=== PATIENT | female | born 1985 | race Hispanic/Latino ===

== ENCOUNTER 2022-08-16 08:47 | Emergency (ER) | payer SELFPAY ==
[2022-08-16] MEDS ORDERED: FOLIC ACID 1 MG, MULTIVITAMINS INJ 10 ML, THIAMINE HCL 100 MG in NA CHLORIDE 0.9% 1,000 ML IV ONE (09:00)
[2022-08-16 09:41] LABS: Absolute Lymphocytes (CBC) 0.5 K/uL (0.7-4.9); Hematocrit 43.1 % (36.0-45.0); Lymphocytes % 3.6 % (15.3-44.8); MCV 89.3 fL (80-100); MPV 8.3 fL (7.6-11.3); RBC Red Blood Cell Count 4.83 M/uL (3.86-4.86)
[2022-08-16 09:59] LABS: ALT/SGPT 52 U/L (13-56); AST/SGOT 45 U/L (15-37); Albumin 4.3 g/dL (3.4-5.0); Alkaline Phosphatase 61 U/L (45-117); BUN Blood Urea Nitrogen 9 mg/dL (7-18); Bicarbonate 26 mEq/L (21-32); Bilirubin Total 0.3 mg/dL (0.2-1.0); Glomerular Filtration Rate 107 ml/min (=/>90); Glucose Level 144 mg/dL (74-106); Lipase 25 U/L (13-75); Potassium 3.9 mEq/L (3.5-5.1); Protein, Total 8.5 g/dL (6.4-8.2); Sodium Level 141 mEq/L (136-145); Troponin High Sensitivity < 3.0 pg/mL (<58.9)
[2022-08-16 10:03] LABS: Specific Gravity 1.021 (1.005-1.030); Urine Bacteria None Seen /HPF (<20); Urine Bilirubin NEGATIVE (Negative); Urine Blood 2+ (Negative); Urine Clarity Clear (Clear); Urine Color Light-Yellow (Yellow); Urine Glucose NEGATIVE (Negative); Urine Mucus Slight /HPF (None Seen); Urine Protein 1+ (Negative); Urine RBC <5 /HPF (None Seen); Urine Urobilinogen Normal (Normal)
[2022-08-16 10:18] LABS: Blood Morphology Comment NOT SEEN (NOT SEEN); Platelet Estimate ADEQ; White Blood Cell Scan OK (OK)
[2022-08-16] MEDS ORDERED: FAMOTIDINE 20 MG/2 ML VIAL IV ONE (11:03)
[2022-08-16] MEDS ORDERED: ONDANSETRON 4 MG/2 ML VIAL ONE ×2 (11:03→12:30)
--- NOTE | 2022-08-16 11:07 | RAD REPORT ---
EXAM DESCRIPTION: CT - Abdomen Pelvis Wo Contrast - 08/16/2022 10:34 am CLINICAL HISTORY: ABD PAIN COMPARISON: No comparisons TECHNIQUE: Thin cut axial CT imaging of the abdomen and pelvis was performed without IV contrast. Mu ltiplanar reformats were generated and reviewed. All CT scans are performed using dose optimization technique as appropriate and may include automated exposure control or mA/KV adjustment according to patient size. FINDINGS: No suspicious findings in the lung bases. The liver, spleen, and pancreas show no suspicious findings. Gallbladder and biliary tree are also wi thout suspicious finding. Symmetric renal contour, without suspicious parenchymal findings within limits of noncontrast techniq ue. No evidence of radiopaque calculi or hydroureteronephrosis. No dilated bowel loops or bowel wall thickening. Nonspecific fluid filling throughout segments of non distended small large bowel loops. No free air, free fluid or inflammatory stranding. No hernia, mass or bulky lymphadenopathy. The urinary bladder is without significant finding. No suspicious bony findings. IMPRESSION: Fluid filling within nondistended segments of small and large bowel loops, could relate to diarrheal state or nonspecific mild enterocolitis. No other acute intra-abdominal process.
[2022-08-16] MEDS ORDERED: NA CHLORIDE 0.9% 1,000 ML ONE (12:30)
--- NOTE | 2022-08-16 13:46 | ER ---
Nurse's Notes [facility] Name: Gabriela Mckeon Age: 36 yrs Sex: Female : 1985 Arrival Date: 08/16/2022 Time: 08:47 Bed 19 Private MD: Diagnosis: Nausea with vomiting, unspecified;Diarrhea, unspecified;Alcohol use, unspecified Presentation: 08/16 09:00 Chief complaint: Patient states: "I think I have alcohol poisoning, I can't keep hb anything down and have black watery stools and I can't breathe.". Coronavirus screen: At this time, the client does not indicate any symptoms associated with coronavirus-19. Ebola Screen: No symptoms or risks identified at this time. Initial Sepsis Screen: Does the patient meet any 2 criteria? No. Patient's initial sepsis screen is negative. Does the patient have a suspected source of infection? No. Patient's initial sepsis screen is negative. Risk Assessment: Do you want to hurt yourself or someone else? Patient reports no desire to harm self or others. Onset of symptoms was August 16, 2022. 09:00 Method Of Arrival: Ambulatory hb 09:00 Acuity: TIM 3 hb Triage Assessment: 09:04 General: Appears in no apparent distress. Behavior is calm, cooperative. Pain: Pain hb currently is 8 out of 10 on a pain scale. Neuro: Level of Consciousness is awake, alert, obeys commands, Oriented to person, place, time, situation. Cardiovascular: Patient's skin is warm and dry. Respiratory: Respiratory effort is even, unlabored, Respiratory pattern is regular, symmetrical. GI: Reports lower abdominal pain, diarrhea, nausea, vomiting. Historical: - Allergies: 09:03 No Known Allergies; hb - Home Meds: 09:03 None [Active]; hb - PMHx: 09:03 None; hb - PSHx: 09:03 None; hb - Immunization history:: Adult Immunizations up to date. - Social history:: Smoking status: Patient denies any tobacco usage or history of. Screenin:47 [facility] ED Fall Risk Assessment (Adult) History of falling in the last 3 months, mb9 including since admission No falls in past 3 months (0 pts) Confusion or Disorientation No (0 pts) Intoxicated or Sedated No (0 pts) Impaired Gait No (0 pts) Mobility Assist Device Used No (0 pt) Altered Elimination No (0 pt) Score/Fall Risk Level 0 - 2 = Low Risk Oriented to surroundings, Maintained a safe environment, Educated pt \\T\\ family on fall prevention, incl call for assistance when getting out of bed. Abuse screen: Denies threats or abuse. Nutritional screening: No deficits noted. Tuberculosis screening: No symptoms or risk factors identified. Assessment: 11:03 Reassessment: Patient appears in no apparent distress at this time. Patient and/or iw family updated on plan of care and expected duration. Pain level reassessed. Patient is alert, oriented x 3, equal unlabored respirations, skin warm/dry/pink. 12:47 Reassessment: No changes from previously documented assessment. Patient and/or family mb9 updated on plan of care and expected duration. Pain level reassessed. Patient is alert, oriented x 3, equal unlabored respirations, skin warm/dry/pink. Patient states feeling better. Patient states symptoms have improved. 13:24 Reassessment: Discharge pending completion of fluids. mb9 Vital Signs: 09:00 BP 129 / 100; Pulse 133; Resp 16; Temp 98.4; Pulse Ox 100% on R/A; Weight 64.86 kg; hb Height 5 ft. 1 in. ; Pain 8/10; 11:02 BP 114 / 77; Pulse 114; Resp 16; Pulse Ox 100% on R/A; iw 11:39 BP 119 / 90; Pulse 101; Resp 16; Pulse Ox 99% on R/A; iw 12:47 BP 111 / 63; Pulse 105; Resp 16; Pulse Ox 100% ; mb9 13:39 BP 114 / 65; Pulse 102; Resp 16; Pulse Ox 99% on R/A; mb9 09:00 Body Mass Index 27.02 (64.86 kg, 154.94 cm) hb 09:00 Pain Scale: Adult hb ED Course: 08:49 Patient arrived in ED. am2 08:52 [facility]C [facility]. kb 08:52 Rodolfo Castro MD is Attending Physician. kb 09:03 Triage completed. hb 09:03 Arm band placed on. hb 10:21 EKG done, by ED staff, reviewed by Gi GOLDSTEIN. zm 10:35 Abdomen In Process Unspecified. EDMS 10:54 Jenn Dahl, RN is Primary Nurse. iw 12:47 Placed in gown. Bed in low position. Call light in reach. Side rails up X 1. Client mb9 placed on continuous cardiac and pulse oximetry monitoring. NIBP monitoring applied. 12:47 No provider procedures requiring assistance completed. mb9 13:57 IV discontinued, intact, bleeding controlled, No redness/swelling at site. Pressure mb9 dressing applied. Administered Medications: 11:02 Drug: Famotidine IVP 20 mg Route: IVP; Site: right antecubital; iw 13:53 Follow up: Response: No adverse reaction mb9 11:02 Drug: Ondansetron IVP 4 mg Route: IVP; Site: right antecubital; iw 13:53 Follow up: Response: No adverse reaction mb9 11:15 Drug: Banana Bag - (NS 0.9% IV 1000 ml, foLIC Acid IVPB 1 mg, Thiamine IV 100 mg, iw Multivitamin IV 1 amp) Route: IV; Rate: calculated rate; Site: right antecubital; 13:53 Follow up: Response: No adverse reaction; IV Status: Completed infusion mb9 12:28 Drug: NS 0.9% IV 1000 ml Route: IV; Rate: 1000 ml; Site: right antecubital; mb9 13:53 Follow up: Response: No adverse reaction; IV Status: Completed infusion mb9 12:28 Drug: Ondansetron IVP 4 mg Route: IVP; Site: right antecubital; mb9 13:53 Follow up: Response: No adverse reaction mb9 Medication: 12:47 VIS not applicable for this client. mb9 Outcome: 13:45 Discharge ordered by . brandon 13:57 Discharged to home ambulatory. mb9 13:57 Condition: stable 13:57 Discharge instructions given to patient, Instructed on discharge instructions, follow up and referral plans. Demonstrated understanding of instructions, follow-up care, medications, Prescriptions given X 1. 13:57 Patient left the ED. mb9 Signatures: Dispatcher [employer] EDMS Gi Davies, BUILDING TRADES TEACHER-C BUILDING TRADES TEACHER-Ckb Jenn Dahl, RN RN Nan Rothman RN RN Dorothea Ames Zaina zm Breneman, Bekah Dumont RN RN mb9 Corrections: (The following items were deleted from the chart) 09:04 09:00 Chief complaint: Patient states: "I think I have alcohol poisoning, I can't keep hb anything down and have black watery stools and my chest hurts and I can't breathe." hb 13:39 12:47 BP 111 / 63; Pulse 74bpm; Resp 16bpm; Pulse Ox 100%; mb9 mb9
--- NOTE | 2022-08-16 13:46 | EDPHYS ---
Physician Documentation [facility] Name: Gabriela Mckeon Age: 36 yrs Sex: Female : 1985 Arrival Date: 08/16/2022 Time: 08:47 Bed 19 Private MD: ED Physician Rodolfo Castro HPI: 08/16 15:56 This 36 yrs old Female presents to ER via Ambulatory with complaints of kb Vomiting/Diarrhea, Shortness Of Breath. 15:56 The patient presents to the emergency department with nausea, vomiting, diarrhea. kb Onset: The symptoms/episode began/occurred this morning. Possible causes: etoh. The symptoms are aggravated by nothing. The symptoms are alleviated by nothing. Associated signs and symptoms: Pertinent positives: abdominal pain, diarrhea, nausea, vomiting. Severity of symptoms: At their worst the symptoms were moderate in the emergency department the symptoms are unchanged. The patient has not experienced similar symptoms in the past. The patient has not recently seen a physician. Pt states "I think I have alcohol poisoning. I drank some beer and shots last night. This morning I've had nausea, vomiting and diarrhea.". Historical: - Allergies: 09:03 No Known Allergies; hb - Home Meds: 09:03 None [Active]; hb - PMHx: 09:03 None; hb - PSHx: 09:03 None; hb - Immunization history:: Adult Immunizations up to date. - Social history:: Smoking status: Patient denies any tobacco usage or history of. ROS: 15:55 Constitutional: Negative for fever, chills, and weight loss. kb 15:55 Abdomen/GI: Positive for abdominal pain, nausea, vomiting, and diarrhea. 15:55 All other systems are negative. Exam: 15:55 Constitutional: This is a well developed, well nourished patient who is awake, alert, kb and in no acute distress. Head/Face: Normocephalic, atraumatic. ENT: Moist Mucous membranes Cardiovascular: Regular rate and rhythm with a normal S1 and S2. No gallops, murmurs, or rubs. No pulse deficits. Respiratory: Respirations even and unlabored. No increased work of breathing. Talking in full sentences Abdomen/GI: Soft, non-tender. No distention Skin: Warm, dry with normal turgor. Normal color. MS/ Extremity: Pulses equal, no cyanosis. Neurovascular intact. Full, normal range of motion. Neuro: Awake and alert, GCS 15, oriented to person, place, time, and situation. Moves all extremities. Normal gait. Vital Signs: 09:00 BP 129 / 100; Pulse 133; Resp 16; Temp 98.4; Pulse Ox 100% on R/A; Weight 64.86 kg; hb Height 5 ft. 1 in. ; Pain 8/10; 11:02 BP 114 / 77; Pulse 114; Resp 16; Pulse Ox 100% on R/A; iw 11:39 BP 119 / 90; Pulse 101; Resp 16; Pulse Ox 99% on R/A; iw 12:47 BP 111 / 63; Pulse 105; Resp 16; Pulse Ox 100% ; mb9 13:39 BP 114 / 65; Pulse 102; Resp 16; Pulse Ox 99% on R/A; mb9 09:00 Body Mass Index 27.02 (64.86 kg, 154.94 cm) hb 09:00 Pain Scale: Adult hb MDM: 09:05 Patient medically screened. kb 13:47 ED course: pt feeling better after treatment and ready to go home. tolerating po intake.kb 15:55 Differential diagnosis: Nonspecific abd pain, gastritis, pancreatitis, diverticulitis, kb viral gastroenteritis, gastroenteritis, etoh use. Data reviewed: vital signs, nurses notes. Counseling: I had a detailed discussion with the patient and/or guardian regarding: the historical points, exam findings, and any diagnostic results supporting the discharge/admit diagnosis, lab results, radiology results, the need for outpatient follow up, a family practitioner, to return to the emergency department if symptoms worsen or persist or if there are any questions or concerns that arise at home. 08/16 09:08 Order name: CBC with Diff; Complete Time: 10:22 kb 08/16 09:08 Order name: CMP; Complete Time: 10:00 kb 08/16 09:08 Order name: Lipase; Complete Time: 10:00 kb 08/16 09:08 Order name: Test, Urine; Complete Time: 10:04 kb 08/16 09:08 Order name: Urinalysis w/ reflexes; Complete Time: 10:04 kb 08/16 09:08 Order name: Troponin HS; Complete Time: 10: kb 08/16 10:18 Order name: CBC Smear Scan; Complete Time: 10:22 EDMS 08/16 10:17 Order name: Abdomen ; Complete Time: 11:07 EDMS 08/16 09:08 Order name: EKG; Complete Time: 09:08 kb 08/16 09:08 Order name: IV Saline Lock; Complete Time: 09:23 kb 08/16 09:08 Order name: Labs collected and sent; Complete Time: 09:23 kb 08/16 09:08 Order name: EKG - Nurse/Tech; Complete Time: 10:20 kb 08/16 11:15 Order name: PO challenge; Complete Time: 11:39 kb Administered Medications: 11:02 Drug: Famotidine IVP 20 mg Route: IVP; Site: right antecubital; iw 13:53 Follow up: Response: No adverse reaction mb9 11:02 Drug: Ondansetron IVP 4 mg Route: IVP; Site: right antecubital; iw 13:53 Follow up: Response: No adverse reaction mb9 11:15 Drug: Banana Bag - (NS 0.9% IV 1000 ml, foLIC Acid IVPB 1 mg, Thiamine IV 100 mg, iw Multivitamin IV 1 amp) Route: IV; Rate: calculated rate; Site: right antecubital; 13:53 Follow up: Response: No adverse reaction; IV Status: Completed infusion mb9 12:28 Drug: NS 0.9% IV 1000 ml Route: IV; Rate: 1000 ml; Site: right antecubital; mb9 13:53 Follow up: Response: No adverse reaction; IV Status: Completed infusion mb9 12:28 Drug: Ondansetron IVP 4 mg Route: IVP; Site: right antecubital; mb9 13:53 Follow up: Response: No adverse reaction mb9 Disposition: 17:07 Co-signature as Attending Physician, Rodolfo Castro MD I reviewed the patient's care rn provided by the Advanced Practice Provider and agree with the diagnosis and treatment plan. Disposition Summary: 08/16/22 13:45 Discharge Ordered Location: Home kb Condition: Stable kb Diagnosis - Nausea with vomiting, unspecified kb - Diarrhea, unspecified kb - Alcohol use, unspecified kb Followup: kb - With: Emergency Department - When: As needed - Reason: Worsening of condition Followup: kb - With: Private Physician - When: 2 - 3 days - Reason: Recheck today's complaints, Continuance of care, Re-evaluation by your physician Discharge Instructions: - Discharge Summary Sheet kb - Food Choices to Help Relieve Diarrhea, Adult kb - Nausea and Vomiting, Adult, [id number] kb - Diarrhea, Adult, [id number] kb Forms: - Medication Reconciliation Form kb - Thank You Letter kb - Antibiotic Education kb - Prescription Opioid Use kb - Work release form mb9 Prescriptions: - ondansetron 4 mg Oral Tablet,disintegrating - take 1 tablet by ORAL route every 6 hours As needed; 12 tablet; Refills: 0, kb Product Selection Permitted Signatures: Dispatcher [employer] EDMS Gi Davies, DEPARTMENT CHAIRPERSON-C DEPARTMENT CHAIRPERSON-Jenn Hdz, RN RN iw Rodolfo Castro MD MD rn Baxter, Heather, RN RN hb Breneman, Mary Beth, RN RN mb9 Corrections: (The following items were deleted from the chart) 10:17 10:05 Abdomen Pelvis W [id number] ordered. EDND EDMS
[2022-08-16 14:02] VITALS: TEMP 98.4
[2022-08-16 14:07] VITALS: BP 114/65; O2SAT 99
--- NOTE | 2022-08-17 07:07 | EKG ---
Test Date: 2022-08-16 Test Time: 10:17:43 [employer] System Administrator: CARA MEASUREMENT RESULTS: Intervals: Rate: 108 AR: 160 QRSD: 72 QT: 352 QTc: 471 Anderson: P: 40 AR: 160 QRS: 113 T: 49 INTERPRETIVE STATEMENTS: Sinus tachycardia Right axis deviation Nonspecific ST and T wave abnormality Abnormal ECG No previous ECG available for comparison Electronically Signed On 08-17-22 07:06:36 CDT by Shadi Mario
== END 2022-08-16 13:57 | disposition home or self-care (01) ==
LOC: ER 08:47
DX: R19.7 Diarrhea, unspecified (principal); F10.90 Alcohol use, unspecified, uncomplicated
CPT/HCPCS: 36415; 74176; 80053; 81001; 81025; 83690; 84484; 85025; 93005; 96365; 96366; 96375; 99284; J2405; J3411; J7030